=== PATIENT | female | born 2000 | race African-American/Black ===

== ENCOUNTER 2019-10-29 16:31 | Emergency (ER) | payer BC, MEDICAID, SELFPAY ==
--- NOTE | ~2019-10-29 | XR_ITS ---
XR abdomen/kub 1V 10/29/2019 18:05 INDICATION: Left flank pain for 2 months TECHNIQUE: KUB COMPARISON: None FINDINGS: Bowel gas pattern is normal. There is a large amount of debris in the stomach. There is no evidence of free air, mass, organomegaly, ascites or obstruction. No abnormal calculi are seen. The bones appear intact. There is a small right pelvic phlebolith. IMPRESSION: 1: No acute abdominal abnormality identified. Reviewed, dictated and finalized at location A.
[2019-10-29 16:51] VITALS: BP 118/64; PULSE 96; RESP 18; TEMP 37.7; O2SAT 99
--- NOTE | 2019-10-29 17:17 | ED.GENADULT ---
HPI - General Adult General Chief complaint: Unspecified Stated complaint: headaches/stomach pain/vomiting/weakness Time Seen by Provider: 10/29/19 17:17 Source: patient Mode of arrival: ambulatory Limitations: no limitations History of Present Illness HPI narrative: 19-year-old female patient presents to the [facility] with multiple symptoms. Patient states she has had abdominal pain for about 2 months now. Patient did give to a baby about 6 months ago. Patient states she also recently had an Implanon implanted about 1 month ago. Patient states that she has had abdominal pain that is been coming and going. Denies any diarrhea but states that she did start having vomiting about a week ago. Patient states she is also been feeling very hot inside . But denies any fevers, body aches or chills. Denies any sore throat, runny nose, stuffy nose or coughing. Denies any chest pain or shortness of breath. Patient complains of some aching joints at times. Denies breast-feeding at this time. Patient does not have a primary doctor has followed up with her OB since giving . Patient denies any pain with urination. Patient states that she has been spotting ever since getting the Implanon but has not had a full. Since giving . Related Data Home Medications Medication Instructions Recorded Confirmed Nexplanon 10/29/19 Allergies Allergy/AdvReac Type Severity Reaction Status Date / Time No Known Allergies Allergy Unknown Unverified 09/25/17 19:16 Review of Systems Review of Systems: Narrative: CONSTITUTIONAL: Denies fever, chills, or sweats. EYES: Denies visual changes, redness, or discharge. ENT: Denies rhinorrhea, congestion, sore throat, or otalgia. CARDIOVASCULAR: Denies chest pain, palpitations, or edema. RESPIRATORY: Denies cough or dyspnea. GASTROINTESTINAL: Positive abdominal pain, nausea, vomiting, denies diarrhea. GENITOURINARY: Denies dysuria or hematuria. SKIN: Denies rash or itching. MUSCULOSKELETAL: Denies back pain, positive joint pain, and myalgia. NEUROLOGIC: Positive headache, denies numbness, or weakness. PSYCHIATRIC: Denies anxiety or depression. PMFSH Comments At the time of my signature I agree with nursing past medical history, surgical, social, and family history. There is no relevant family history pertinent to the presenting complaint. Exam Narrative: Exam Narrative: GENERAL: Well-appearing, well-nourished, and in no acute distress. HEAD: Normocephalic, atraumatic. EYES: PERRLA and EOMI. ENT: Nares with erythema and edema noted bilaterally, no rhinorrhea or epistaxis. Mucous membranes moist. Posterior pharynx with no erythema, tonsillectomy, exudates or lesions present. Bilateral TMs are clear with no erythema or foreign bodies in the canal. NECK: Supple. No lymphadenopathy CHEST: Clear to auscultation. No respiratory distress. Patient able talk in clear complete sentences. HEART: Regular rate and rhythm. No murmur heard. Normal peripheral pulses. ABDOMEN: Soft, flat, nondistended. No guarding, rebound tenderness, or rigid. No pulsatilla masses. Hyperactive bowel sounds present in all four quadrants. No organomegaly. Negative Grimaldo?s sign. No periumbicial tenderness. No Supra public tenderness or distension. Good femoral pulses bilaterally. No hernia noted. No scars or surface trauma. EXTREMITIES: Normal range of motion. No edema. SKIN: Warm, dry, no rash. NEURO: No focal deficits. Alert and oriented x3. Course Reevaluation(s) Reevaluation #1: Reevaluated patient after her urine dip was completed. Her test is negative at this time. When I went in to reevaluate patient she does not have any CVA tenderness on percussion however she states that most of her abdominal pain is on the left flank area. Discussed with patient since she is having the abdominal pain that is been going on for 2 months as well as recent nausea and vomiting and there is some blood in her urine I like
--- NOTE | 2019-10-29 17:28 | PC.NURSE ---
in br to obtain ua spec.
== END 2019-10-29 18:38 | disposition home or self-care (01) ==
PROVIDERS: Emergency Provider Nurse Practitioner Family
DX: R10.12 Left upper quadrant pain (principal); R11.2 Nausea with vomiting, unspecified
CPT/HCPCS: 74018; 81003; 81025; 87086; 87088; 99213; G0463

== ENCOUNTER 2020-09-29 11:04 | Emergency (ER) | payer OTHER, SELFPAY ==
--- NOTE | ~2020-09-29 | US_ITS ---
EXAMINATION: US OB follow up DATE: 09/29/2020 14:11 INDICATION: Left lower quadrant pain during second trimester TECHNIQUE: Real-time ultrasound of the pelvis was performed. The interpreting radiologist was not pre sent for the study. COMPARISON: None. FINDINGS: There is a single living fetus in transverse lie. The placenta is anterior and 4 cm from th e internal cervical os. cardiac activity and movement are noted. heart rate is 144 beats per minute (bpm). The amniotic fluid index is subjectively normal. Cysts are noted in the other resendiz normal left ovary. The following biometric data were obtained: Biparietal diameter (BPD): 3.1 cm; head circumference (HC): 12.1 cm; abdominal circumference (AC): 10 .0 cm; femur length (FL): 2.0 cm. These measurements are concordant. Estimated weight is 145 g +/- 21 g, which correlates with the 77th percentile when 03/19/2021 is used as estimated date of delivery. As single measurements, these parameters are each equal to the following estimated gestational ages w ith ranges of +/- 2 standard deviations: BPD: 15 weeks 6 days +/- 1 weeks 1 days. HC: 16 weeks 1 days +/- 1 weeks 1 days. AC: 16 weeks 0 days +/- 1 weeks 5 days. FL: 16 weeks 1 days +/- 1 weeks 3 days. estimated gestational age based solely on measurements from this exam is 16 weeks 0 days +/- 1 weeks 1 days. IMPRESSION: 1. Single living fetus in transverse lie. 2. No sonographic correlate for the patient's symptoms. 3. Estimated weight is 145 g +/- 21 g, which correlates with the 77th percentile when 03/19/2021 is used as estimated date of delivery. Reviewed, dictated and finalized at location A. SPECTROMETRY SPECIALIST IMPRESSION: 1. Single living fetus in transverse lie. 2. No sonographic correlate for the patient's symptoms. 3. Estimated weight is 145 g +/- 21 g, which correlates with the 77th per centile when 03/19/2021 is used as estimated date of delivery.
[2020-09-29 11:12] VITALS: BP 118/38; PULSE 85; RESP 16; TEMP 35.9; O2SAT 100
[2020-09-29 11:33] LABS: Basophils Percent Auto 0.2 % (0.2-1.2); Eosinophils Absolute Auto 0.2 K/mm3 (0-0.3); Eosinophils Percent Auto 2.2 % (0-4.4); Hematocrit 35.1 % (37.0-47.0); Hemoglobin 11.6 g/dL (12.0-15.0); Immature Granulocyte Absolute 0.02 K/mm3 (0.00-0.031); Immature Granulocyte Percent A 0.2 % (0-0.5); Lymphocytes Absolute Auto 1.43 K/mm3 (0.9-3.2); Lymphocytes Percent Auto 14.8 % (18.3-44.2); Mean Corpuscular Hemoglobin 23.7 pg (26-34); Mean Corpuscular Volume 71.6 fl (80-100); Mean Platelet Volume 10.1 fl (7.4-10.4); Monocytes Absolute Auto 0.3 K/mm3 (0.1-0.6); Monocytes Percent Auto 2.6 % (2.6-8.5); Neutrophils Absolute Auto 7.8 K/mm3 (1.3-6.7); Platelet Count Result 365 k/mm3 (150-375); White Blood Count 9.7 K/mm3 (4.5-10.0)
[2020-09-29 12:50] VITALS: BP 124/76; PULSE 84; RESP 16; TEMP 36.3; O2SAT 98
--- NOTE | 2020-09-29 15:17 | ED.GENADULT ---
HPI - General Adult General Chief complaint: Vaginal Bleeding Stated complaint: 16 weeks /bleeding Time Seen by Provider: 09/29/20 13:01 Source: patient Mode of arrival: ambulatory Limitations: no limitations History of Present Illness HPI narrative: Patient is a 20-year-old female who presents to emergency department for evaluation of vaginal bleeding and cramping that began today while at work presents noting mild cramping with [employer] vaginal bleeding has seen her yeast pusher on Saturday and everything of been fine at that time had ultrasound that was normal per patient. Patient is patient had an ultrasound on Saturday as noted. Patient on arrival no distress denies any injury trauma or recent illness Related Data Home Medications Medication Instructions Recorded Confirmed ferrous sulfate mg 09/29/20 promethazine 09/29/20 pyridoxine (vitamin B6) [Vitamin 09/29/20 09/29/20 B-6] Allergies Allergy/AdvReac Type Severity Reaction Status Date / Time No Known Allergies Allergy Unknown Verified 09/29/20 12:48 Review of Systems Review of Systems: All systems reviewed & are unremarkable except as noted in HPI and below PMFSH Social History Social History (Updated 09/29/20 @ 15:19 by William Cristobal PA-C) Smoking status: Never smoker Gender identity (if verbalized by the patient): Female Exam Narrative: Exam Narrative: GENERAL: Well-appearing, well-nourished, and in no acute distress. HEAD: Normocephalic, atraumatic. EYES: PERRLA and EOMI. ENT: Nares clear, no rhinorrhea or epistaxis. Mucous membranes moist. CHEST: Clear to auscultation. No respiratory distress. No wheezes rales or rhonchi HEART: Regular rate and rhythm. No murmur heard. Normal peripheral pulses. ABDOMEN: Soft, nontender, nondistended EXTREMITIES: Normal range of motion. No edema. SKIN: Warm, dry, no rash. NEURO: No focal deficits. Alert and oriented x3. Cranial nerves II through XII grossly intact PSYCH: Normal mood and affect. Course Course Emergency Course: Patient in the room no distress aware of case findings treatment plan and diagnosis agreeing to follow-up with her yeast pusher by phone first thing tomorrow to set up for reevaluation in the next week. Patient has been given bleeding precautions. Patient will be discharged home given that she had a viable on ultrasound today but warrants close follow-up given the cramping and bleeding patient is aware of this and agrees with the plan and is also been given reasons to return and agrees to do so if symptoms worsen Vital Signs Vital signs: Vital Signs Temperature 96.7 F L 09/29/20 11:12 Pulse Rate 85 09/29/20 11:12 Respiratory Rate 16 09/29/20 11:12 Blood Pressure 118/38 L 09/29/20 11:12 Pulse Oximetry 100 09/29/20 11:12 Temperature 97.4 F L 09/29/20 12:50 Pulse Rate 84 09/29/20 12:50 Respiratory Rate 16 09/29/20 12:50 Blood Pressure 124/76 09/29/20 12:50 Pulse Oximetry 98 09/29/20 12:50 Medical Decision Making MDM Narrative Medical decision making narrative: Patient with vaginal bleeding in hemodynamically stable no high risk changes in the blood work will be sent back to her yeast pusher for further evaluation patient agrees with this plan also provided with reasons to return and agrees to do so if symptoms worsen Vital Signs Vital Signs: Vital Signs Temperature 96.7 F L 09/29/20 11:12 Pulse Rate 85 09/29/20 11:12 Respiratory Rate 16 09/29/20 11:12 Blood Pressure 118/38 L 09/29/20 11:12 Pulse Oximetry 100 09/29/20 11:12 Temperature 97.4 F L 09/29/20 12:50 Pulse Rate 84 09/29/20 12:50 Respiratory Rate 16 09/29/20 12:50 Blood Pressure 124/76 09/29/20 12:50 Pulse Oximetry 98 09/29/20 12:50 Lab Data Result diagrams: 09/29/20 11:21 Labs: Lab Results 09/29/20 09/29/20 09/29/20 Range/Units 11:21 11:21 11:21 WBC 9.7 (4.5-10.0) K/mm3 RBC 4
[2020-09-29 16:24] VITALS: BP 138/60; PULSE 84; RESP 16; O2SAT 99
== END 2020-09-29 16:24 | disposition home or self-care (01) ==
PROVIDERS: Emergency Medicine; Emergency Provider Emergency Medicine; PCP Obstetrics & Gynecology
DX: O46.92 Antepartum hemorrhage, unspecified, second trimester (principal); O26.892 Other specified pregnancy related conditions, second trimester; R10.9 Unspecified abdominal pain; Z3A.16 16 weeks gestation of pregnancy
CPT/HCPCS: 36415; 76816; 84702; 85025; 85461; 99284

== ENCOUNTER 2021-02-17 19:51 | Observation (INO) | payer OTHER, SELFPAY ==
[2021-02-17 20:06] VITALS: BP 127/85; PULSE 102
[2021-02-17 20:16] VITALS: BP 122/68; PULSE 97
[2021-02-17 20:31] VITALS: BP 127/70; PULSE 104
[2021-02-17 20:46] VITALS: BP 123/70; PULSE 87
[2021-02-17 21:00] VITALS: BP 121/72; PULSE 93
[2021-02-17 21:12] VITALS: BMI 23.4
--- NOTE | 2021-02-17 21:12 | OBADM ---
This patient, Barry Moon, admitted to the OB room Labor/Delivery/Recovery 106 for observation. Patient/family oriented to hospital policies and general routines including ID bracelet, bed and alarms, visiting hours, pain management, procedures, bathroom and other care routines, personal items, smoking policy, room service/diet, and visiting hours. Patient/Family are encouraged to report perceived risks to care and to ask questions if they do not understand what they are told or what they should do.
--- NOTE | 2021-02-18 11:11 | PM.OBTRLD ---
OB - Triage/Final Diagnosis Visit Information Date of evaluation: 02/17/21 Reason for evaluation: threatened labor and other (r/o SROM) Comments/Additional reasons for admission: I have assessed the risk for this patient, Barry Moon, and determined that she would benefit from observation care. Evaluation Vital signs: Vital Signs - 24 hr 02/17/21 20:06 02/17/21 20:16 02/17/21 20:31 Pulse Rate 102 H 97 104 H Blood Pressure 127/85 122/68 127/70 02/17/21 20:46 02/17/21 21:00 Pulse Rate 87 93 Blood Pressure 123/70 121/72
== END 2021-02-17 21:35 | disposition home or self-care (01) ==
PROVIDERS: Admitting Provider Student in an Organized Health Care Education/Training Program; Visit Provider Student in an Organized Health Care Education/Training Program
DX: O47.03 False labor before 37 completed weeks of gestation, third trimester (principal); Z3A.49 Greater than 42 weeks gestation of pregnancy; Z3A.35 35 weeks gestation of pregnancy
CPT/HCPCS: G0378; G0379

== ENCOUNTER 2021-02-18 12:53 | Observation (INO) | payer OTHER, SELFPAY ==
--- NOTE | ~2021-02-18 | US_ITS ---
EXAMINATION: US OB limited w BPP DATE: 02/18/2021 13:57 INDICATION: Oligohydramnios during third trimester TECHNIQUE: Real-time pelvic ultrasound was performed. The interpreting radiologist was not present fo r the study. COMPARISON: 09/29/2020 FINDINGS: There is a single living fetus in vertex presentation. The placenta is anterior. heart rate is 144 beats per minute (bpm). The amniotic fluid index is 7.0 cm which is low (normal range: 7.9 cm to 24.9 cm). Biophysical profile performed by the technologist: breathing (30 sec sustained breathing in 30 minutes): 2 out of 2 movement (3 gross body movements in 30 minutes): 2 out of 2 tone (one episode of exquajd-xwnucepvz-tbmdkcm limb movement): 2 out of 2 Amniotic fluid pocket (2 cm): 2 out of 2 Total score: 8 out of 8 IMPRESSION: 1. Single living fetus in vertex presentation. 2. Biophysical profile 8 out of 8. 3. Oligohydramnios. Reviewed, dictated and finalized at location A.
[2021-02-18 13:05] VITALS: BMI 23.8
--- NOTE | 2021-02-18 13:05 | PC.NURSE ---
Pt arrived to department with c/o contractions, vomiting and diarrhea. States she has been drinking water but hasn't been able to keep it down. States she has been receiving care with located within [facility]. Stated she was in to the doctors office two days ago and they did a test to see if her water was leaking, states it was yellow paper that if she was leaking would turn blue, they also looked at it under a microscope, and checked her fluid level. They said her fluid level was 8-13 and that the paper turned blue, also the doctor said she had a high leak, she stated she went to the hospital [place] and wasn't dilated enough to stay even though they told her she was leaking. She was in [facility] last night for evaluation of leaking and contractions. ROM + was negative at that time.
[2021-02-18 13:25] VITALS: BP 108/73; PULSE 92
--- NOTE | 2021-02-18 14:00 | PM.OBTRLD ---
OB - Triage/Final Diagnosis Visit Information Date of evaluation: 02/18/21 Reason for evaluation: threatened labor and other (r/o SROM) Comments/Additional reasons for admission: I have assessed the risk for this patient, Barry Moon, and determined that she would benefit from observation care. Evaluation Vital signs: Vital Signs - 24 hr 02/18/21 13:25 Pulse Rate 92 Blood Pressure 108/73
[2021-02-18] MEDS: ONDANSETRON HCL ODT 4 MG TABLET PO (14:19)
== END 2021-02-18 14:35 | disposition home or self-care (01) ==
PROVIDERS: Admitting Provider Student in an Organized Health Care Education/Training Program; Visit Provider Student in an Organized Health Care Education/Training Program
DX: O47.9 False labor, unspecified (principal); O41.03X0 Oligohydramnios, third trimester, not applicable or unspecified; Z3A.00 Weeks of gestation of pregnancy not specified
CPT/HCPCS: 76815; 76819; 84112; A9270; G0378; G0379

== ENCOUNTER 2021-05-29 14:55 | Emergency (ER) | payer OTHER, SELFPAY ==
[2021-05-29 15:21] VITALS: BP 111/72; PULSE 87; RESP 18; TEMP 36.6; O2SAT 99
[2021-05-29 15:47] LABS: Basophils Percent Auto 0.3 % (0.2-1.2); Eosinophils Absolute Auto 0.3 K/mm3 (0-0.3); Eosinophils Percent Auto 3.7 % (0-4.4); Hematocrit 35.8 % (37.0-47.0); Hemoglobin 11.5 g/dL (12.0-15.0); Immature Granulocyte Absolute 0.02 K/mm3 (0.00-0.031); Immature Granulocyte Percent A 0.3 % (0-0.5); Lymphocytes Absolute Auto 2.36 K/mm3 (0.9-3.2); Lymphocytes Percent Auto 30.3 % (18.3-44.2); Mean Corpuscular HGB Conc 32.1 g/dl (32-36); Mean Corpuscular Hemoglobin 24.2 pg (26-34); Mean Corpuscular Volume 75.2 fl (80-100); Mean Platelet Volume 9.6 fl (7.4-10.4); Monocytes Absolute Auto 0.5 K/mm3 (0.1-0.6); Monocytes Percent Auto 5.9 % (2.6-8.5); Neutrophils Absolute Auto 4.7 K/mm3 (1.3-6.7); Neutrophils Percent Auto 59.5 % (45.5-73.1); Platelet Count Result 376 k/mm3 (150-375); Red Blood Count 4.76 M/mm3 (4.2-5.4); Red Cell Distribution Width 19.3 % (11.5-14.5); White Blood Count 7.8 K/mm3 (4.5-10.0)
[2021-05-29 16:12] LABS: Beta HCG Quantitative < 2.39 mIU/ML
[2021-05-29 16:47] VITALS: BP 107/66; PULSE 67; RESP 18; TEMP 36.3; O2SAT 99
== END 2021-05-30 04:11 | disposition left against medical advice (07) ==
PROVIDERS: Emergency Provider Emergency Medicine
DX: N93.9 Abnormal uterine and vaginal bleeding, unspecified (principal); Z53.21 Procedure and treatment not carried out due to patient leaving prior to being seen by health care provider
CPT/HCPCS: 36415; 84702; 85025; 85461; 99199

== ENCOUNTER 2021-08-03 19:33 | Emergency (ER) | payer OTHER, SELFPAY ==
[2021-08-03 19:35] VITALS: BP 120/78; PULSE 83; RESP 20; TEMP 36.7; O2SAT 100
--- NOTE | 2021-08-03 19:55 | ED.GENADULT ---
HPI - General Adult General Chief complaint: Headache Stated complaint: Headache Source: patient and family Mode of arrival: ambulatory Limitations: no limitations History of Present Illness HPI narrative: Patient is a 21-year-old -[place] female who presents to the [facility] via POV for evaluation of an intermittent headache that has been present for approximately 3 weeks. She is accompanied by her mother. Additionally, she reports a sore throat and bilateral ear pain that is intermittent as well. Excedrin and sleeping provides some relief. Nothing worsens symptoms. She also reports nausea and vomiting that has been present for 1 week. She denies taking OTC meds for nausea and vomiting. Nothing improves or worsens GI symptoms. She is requesting a test today. LMP 07/11/21 Related Data Home Medications Medication Instructions Recorded Confirmed ferrous sulfate mg 09/29/20 norgestimate-ethinyl estradiol tablet 08/03/21 [Estarylla] Allergies Allergy/AdvReac Type Severity Reaction Status Date / Time No Known Allergies Allergy Unknown Verified 08/03/21 19:38 Review of Systems Review of Systems: Denies past abdominal medical history. Pertinent negatives fever, chills, sweats, malaise, poor p.o. intake, change in appetite, recent weight loss, lymphadenopathy, severe persistent headache, drooling, difficulty swallowing, changes, ear drainage, hearing difficulty, tinnitus, vertigo, dizziness, LOC, urinary sxs, back/flank pain, extremity paresthesias, blood in stool, nausea, vomiting, diarrhea, constipation, belching, bloating, dry mouth, heartburn, jaundice, vomiting blood, and testicular pain. PMFSH Social History Social History Smoking status: Never smoker Gender identity (if verbalized by the patient): Female Comments Spinal stenosis, radiculopathy/sciatica,cauda equina syndrome, sacroiliac pathology, fracture, strain Exam Narrative: GENERAL: Well-appearing, well-nourished, and in no acute distress. HEAD: Normocephalic, atraumatic. No sinus tenderness or facial swelling appreciated. EYES: PERRLA and EOMI. No evidence of erythema, swelling, or drainage. ENT: Mucous membranes moist and pink. Uvula is midline without erythema and swelling. No evidence of petechial rash, cobblestoning, lesions, ulcers, erythema, swelling, exudates, peritonsillar abscess, tenting, or drooling. Breath odor and voice normal. NECK: Supple. No Lymphadenopathy or nuchal rigidity appreciated. CHEST: Bilateral lung jimenez are clear to auscultation. No respiratory distress. No evidence of cough or pleuritic cp upon examination. HEART: Regular rate and rhythm. No murmur, gallop, or rub heard. ABDOMEN: Soft, nontender, nondistended, normal active bowel sounds in all quadrants. No guarding. No rebound tenderness. No pulsatile or palpable abdominal mass(es). No CVAT EXTREMITIES: Normal range of motion. No edema. SKIN: Warm, dry, no rash. Excellent skin turgor. NEURO: No focal deficits. Alert and oriented x3. SPECIAL OBSERVATIONS: Complaints out of proportion to exam findings. Course Vital Signs Vital signs: Vital Signs Temperature 98.0 F 08/03/21 19:35 Pulse Rate 83 08/03/21 19:35 Respiratory Rate 20 08/03/21 19:35 Blood Pressure 120/78 08/03/21 19:35 Pulse Oximetry 100 08/03/21 19:35 Temperature 98.0 F 08/03/21 19:35 Pulse Rate 83 08/03/21 19:35 Respiratory Rate 20 08/03/21 19:35 Blood Pressure 120/78 08/03/21 19:35 Pulse Oximetry 100 08/03/21 19:35 Reviewed Medical Decision Making Differential Diagnosis Differential Diagnosis: Allergic rhinitis, ABRS, acute viral sinusitis, strep pharyngitis, nasopharyngitis, bronchitis, pneumonia, AOM, otitis externa, viral URI, influenza, covid-19, gastroenteritis, IBS, Crohn's disease, ulcerative colitis Medical Records Medical records reviewed: Yes I reviewed the external patient's me
== END 2021-08-03 20:10 | disposition home or self-care (01) ==
PROVIDERS: Emergency Provider Nurse Practitioner Family
DX: J30.2 Other seasonal allergic rhinitis (principal); R11.2 Nausea with vomiting, unspecified
CPT/HCPCS: 99213; G0463

== ENCOUNTER 2022-02-01 19:46 | Emergency (ER) | payer OTHER, SELFPAY ==
--- NOTE | 2022-02-01 19:51 | ED.SKABFB ---
HPI - Skin/Abscess/Foreign Bdy General Chief complaint: Skin/Abscess/Foreign Body Stated complaint: Insect bites Time Seen by Provider: 02/01/22 19:51 Source: patient Mode of arrival: ambulatory Limitations: no limitations History of Present Illness HPI narrative: 21 yo F presents with c/o insect bites to both arms, chest, back. 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 C/o itching and burning. states coworkers have similar bites. all systems reviewed and negative except as noted above. Related Data Home Medications Medication Instructions Recorded Confirmed ferrous sulfate 325 mg (65 mg mg 09/29/20 iron) tablet norgestimate 0.25 mg-ethinyl tablet 08/03/21 estradiol 35 mcg tablet (Estarylla) Allergies Allergy/AdvReac Type Severity Reaction Status Date / Time No Known Allergies Allergy Unknown Verified 08/03/21 19:38 Review of Systems Review of Systems: CONSTITUTIONAL: Denies fever, chills, or sweats. EYES: Denies visual changes, redness, or discharge. ENT: Denies rhinorrhea, congestion, sore throat, or otalgia. CARDIOVASCULAR: Denies chest pain, palpitations, or edema. RESPIRATORY: Denies cough or dyspnea. GASTROINTESTINAL: Denies abdominal pain, nausea, vomiting, or diarrhea. GENITOURINARY: Denies dysuria or hematuria. SKIN: Reports itching, burning insect bites. MUSCULOSKELETAL: Denies back pain, joint pain, or myalgia. NEUROLOGIC: Denies headache, numbness, or weakness. PSYCHIATRIC: Denies anxiety or depression. All other systems reviewed are negative, except as documented in HPI. PMFSH Social History Social History Smoking status: Never smoker Gender identity (if verbalized by the patient): Female Comments At time of signature, agree with nursing past medical, surgical, social and family history. There is no relevant family history pertinent to the presenting complaint. Exam Narrative: GENERAL: This is a well-nourished, well-developed patient, in no apparent distress. HEAD: normocephalic, atraumatic. EYES: PERRL. Sclera clear/white. Vision is grossly intact. EARS: External ears normal NOSE: External nose normal NECK: Neck supple, non-tender without lymphadenopathy, masses or thyromegaly. CARDIOVASCULAR: Regular rate and rhythm without murmurs, gallops, or rubs. RESPIRATORY: Clear to auscultation. Breath sounds equal bilaterally. No wheezes, rales, or rhonchi. SKIN: warm, Dry, intact with no suspicious lesions or rash, good texture and turgor. Reports erythematous scabbed papules to both anterior aspects of arms, middle of back, chest. No drainage. NEURO: awake, alert, and oriented to person, place and time. There were no obvious focal neurologic abnormalities. EXTREMITIES: No joint tenderness, effusion, or edema noted. No calf tenderness. Negative Homans sign bilaterally. Course Course Level of Care: Express Care Visit Vital Signs Vital signs: Reviewed MDM - Skin/Abscess/Foreign Bdy MDM Narrative Medical decision making narrative: Patient is aware of diagnosis, understands and agrees to treatment plan. Anticipatory guidance given. Patient agrees to follow-up as directed and is aware of reasons to seek care at the emergency department. Portions of this record may have been created with voice recognition software Discharge Plan Discharge Clinical Impression: Insect bite Patient Disposition: Home, Self-Care Condition: Stable Instructions: Insect Bite or Sting (ED) Additional Instructions: Apply steroid cream as prescribed. Take benadryl as needed for itching. See your doctor if symptoms not improving. Prescriptions: New triamcinolone acetonide 0.1 % cream 1 applic topical BID Qty: 15 0RF No Action norgestimate-ethinyl estradiol [Estarylla] 0.25-35 mg-mcg tablet ferrous sulfate 325 mg (65 mg iron) tablet Follow-up/Referrals: PHYSICIAN,SUPERVISOR CEREAL [Teresa
[2022-02-01 19:54] VITALS: BP 147/103; PULSE 101; RESP 18; TEMP 37.3; O2SAT 100
== END 2022-02-01 20:06 | disposition home or self-care (01) ==
PROVIDERS: Emergency Provider Nurse Practitioner Family
DX: S40.862A Insect bite (nonvenomous) of left upper arm, initial encounter (principal); S40.861A Insect bite (nonvenomous) of right upper arm, initial encounter; S20.469A Insect bite (nonvenomous) of unspecified back wall of thorax, initial encounter; S20.369A Insect bite (nonvenomous) of unspecified front wall of thorax, initial encounter; W57.XXXA Bitten or stung by nonvenomous insect and other nonvenomous arthropods, initial encounter
CPT/HCPCS: 99213; G0463

== ENCOUNTER 2022-11-26 07:50 | Emergency (ER) | payer BC, OTHER, SELFPAY ==
--- NOTE | ~2022-11-26 | US_ITS ---
Pelvic ultrasound. Clinical History: Pelvic pain Technique: Realtime transabdominal and transvaginal scanning of the pelvis was performed. Color flow Doppler and Doppler spectral analysis were performed. Findings: The uterus is anteverted. The endometrial stripe has a thickness of 5 mm. No focal mass is identified. The right ovary measures 1.6 x 3.0 x 2.0 cm. Probable small right ovarian or paraovarian cysts are pr esent. The left ovary measures 2.4 x 3.8 x 2.5 cm. No significant left ovarian or adnexal mass is seen. Vascular flow present in both ovaries on Doppler spectral analysis. There is trace free fluid in the cul de sac. Impression: Probable small right paraovarian versus ovarian cysts. Small amount of free fluid. Reviewed, dictated and finalized at [facility]. Impression: Probable small right paraovarian versus ovarian cysts. Small amount of free fluid.
--- NOTE | ~2022-11-26 | CT_ITS ---
EXAMINATION: CT abdomen pelvis w con DATE: 11/26/2022 11:00 INDICATION: Abdomen pain TECHNIQUE: Computed tomography (CT) of the abdomen and pelvis was performed with 100 cc Omnipaque 350 intravenous contrast. The dose-length product was 277.37 mGy-cm. Automated exposure control and iter ative reconstruction technique were employed. COMPARISON: None. FINDINGS: Heart size normal. No significant pleural or pericardial effusion. No significant vascular abnormality. No lymphadenopathy. Small amount of free fluid in the pelvis. Nonobstructive bowel patte rn. No significant vascular abnormality. The liver, spleen, pancreas, adrenal glands and kidneys are unremarkable. No free air or free fluid. Small fat-containing umbilical hernia. Small fat-containing umbilical hernia. The appendix is not pos itively visualized. There is no pericecal inflammatory change to suggest appendicitis. There is sc oliosis. IMPRESSION: 1. No acute abdominal abnormality. 2: Small amount of free fluid in the pelvis, likely physiologic. Reviewed, dictated and finalized at location [facility].
[2022-11-26 07:56] VITALS: BP 110/58; PULSE 79; RESP 18; TEMP 36.7; O2SAT 100
--- NOTE | 2022-11-26 08:52 | ED.ABDPAIN ---
HPI - Abdominal Pain General Chief Complaint: Abdominal Pain Stated Complaint: Ovary pain Time Seen by Provider: 11/26/22 08:25 Source: RN notes reviewed History of Present Illness HPI narrative: Patient presents emerged department from home for lower abdominal pain. Patient states she has had pain in the bilateral lower abdomen for the past 1 week. Patient states the pain is described as sharp and stabbing in nature and does not radiate. Nothing makes the pain better or worse. Patient states she has been taking Tylenol every morning for the pain with mild relief. She does note some associated nausea vomiting. She denies any fevers or chills chest pain shortness of breath diarrhea or any other symptoms. Related Data Home Medications Medication Instructions Recorded Confirmed vits [id number] fum 1 tablet DIRECTED 02/01/22 02/01/22 28 mg iron-folic acid 800 mcg tablet (Classic ) Allergies Allergy/AdvReac Type Severity Reaction Status Date / Time No Known Allergies Allergy Unknown Verified 08/03/21 19:38 Review of Systems Review of Systems: Gen.: Denies fevers or chills ENT: Denies congestion Respiratory: Denies shortness of breath or cough CV: Denies chest pain or palpitations GI: See HPI denies burning, urgency, frequency or hematuria Musculoskeletal: Denies back pain or muscle pain Neuro: Denies numbness, tingling, weakness or focal weakness Skin: Denies rash Except as documented, all other systems reviewed and negative [facility] Past Medical History Medical History (Updated 11/26/22 @ 11:21 by Nathaniel Pineda DO) Patient denies medical problems Social History Social History Smoking status: Never smoker Gender identity (if verbalized by the patient): Female Exam Narrative: APPEARANCE: No acute distress, nontoxic, resting in bed HEENT: Normocephalic, atraumatic, OMM RESPIRATORY: No respiratory distress, clear to auscultation bilaterally with no rhonchi wheezing or rales CARDIOVASCULAR: RRR s murmur ABDOMINAL: Soft nondistended is going tender to palpation in the right lower quadrant in the left lower quadrant no tenderness in the right upper quadrant in the left upper quadrant no rebound or guarding MUSCULOSKELETAl: Moves all extremities. No clubbing, cyanosis or edema. NEURO: Awake and alert. Following commands, speech normal, no focal deficits SKIN:: Warm, dry. Normal Color PSYCHIATRIC: Normal affect/mood Course Course Emergency Course: Patient states that they are feeling much better at this time. States abdominal pain has resolved. Repeat abdominal exam shows the patient's abdomen to be soft and nontender. Discussed with patient results of workup and diagnosis. Discussed need for follow-up with primary care physician, reasons to return to the emergency department in proper use of medication. Patient understands and agrees to current treatment plan Vital Signs Vital signs: Vital Signs Temperature 98.0 F 11/26/22 07:56 Pulse Rate 79 11/26/22 07:56 Respiratory Rate 18 11/26/22 07:56 Blood Pressure 110/58 L 11/26/22 07:56 Pulse Oximetry 100 11/26/22 07:56 Oxygen Delivery Room Air 11/26/22 07:56 Temperature 98.0 F 11/26/22 07:56 Pulse Rate 86 11/26/22 11:20 Respiratory Rate 16 11/26/22 11:20 Blood Pressure 144/84 H 11/26/22 11:20 Pulse Oximetry 98 11/26/22 11:20 Oxygen Delivery Room Air 11/26/22 07:56 MDM - Abdominal Pain MDM Narrative Medical decision making narrative: Patient's abdomen is soft without significant pain or signs of surgical abdomen on serial exams. Lab and x-ray evaluations are reviewed and patient is felt to be a reasonable candidate for outpatient management. Patient was instructed as to limitations of x-ray and laboratory evaluation and encouraged to return to ED or primary physician for repeat exam in 12 hours if continued or worsening pain pa
[2022-11-26 09:50] LABS: Basophils Percent Auto 0.3 % (0.2-1.2); Eosinophils Absolute Auto 0.5 K/mm3 (0-0.3); Eosinophils Percent Auto 7.3 % (0-4.4); Hematocrit 41.2 % (37.0-47.0); Hemoglobin 13.5 g/dL (12.0-15.0); Immature Granulocyte Absolute 0.02 K/mm3 (0.00-0.031); Immature Granulocyte Percent A 0.3 % (0-0.5); Lymphocytes Absolute Auto 2.03 K/mm3 (0.9-3.2); Lymphocytes Percent Auto 27.5 % (18.3-44.2); Mean Corpuscular HGB Conc 32.8 g/dl (32-36); Mean Corpuscular Hemoglobin 26.2 pg (26-34); Mean Platelet Volume 10.2 fl (7.4-10.4); Monocytes Absolute Auto 0.5 K/mm3 (0.1-0.6); Monocytes Percent Auto 6.1 % (2.6-8.5); Neutrophils Absolute Auto 4.3 K/mm3 (1.3-6.7); Neutrophils Percent Auto 58.5 % (45.5-73.1); Platelet Count Result 367 k/mm3 (150-375); Red Blood Count 5.15 M/mm3 (4.2-5.4); Red Cell Distribution Width 14.3 % (11.5-14.5); White Blood Count 7.4 K/mm3 (4.5-10.0)
[2022-11-26 09:51] LABS: Appearance Urine Clear (Clear); Bacteria Urine Rare /hpf; Bilirubin Urine Negative (Negative); Blood Urine Negative (Negative); Color Urine Yellow (Yellow); Glucose Urine UA Negative (Negative); Ketones Urine Negative (Negative); Leukocyte Esterase Ur Trace LEU/UL (Negative); Nitrate Urine Negative (Negative); Non Pathogenic Casts 0-2; Protein Urine Negative (Negative); RBC Urine 0-2 /hpf (0-2); Specific Grav Ur 1.015 (1.001-1.035); Squamous Epithelial Cell Urine Few /hpf (Few); Urobilinogen Urine 0.2 mg/dL (<2.0)
--- NOTE | 2022-11-26 09:53 | PC.NURSE ---
Pt taken to ultrasound by wheelchair
[2022-11-26 09:56] LABS: Alanine Aminotransferase 13 U/L (6-35); Albumin Level 4.5 g/dL (3.5-5.1); Alkaline Phosphatase 120 U/L (38-126); Anion Gap 1 mmol/L (8-16); Aspartate Amino Transferase 24 U/L (14-36); Bilirubin,Total 0.4 mg/dL (0.2-1.3); Blood Urea Nitrogen 4 mg/dL (7-17); Calcium 9.2 mg/dL (8.4-10.2); Carbon Dioxide 33 mmol/L (22-30); Chloride 101 mmol/L (98-107); Estimated CRCL calculation 121 ml/min; Estimated Glomerular Filt Rate > 60; Glucose 95 mg/dL (65-110); Lipase 58 U/L (23-300); Potassium 4.1 mmol/L (3.4-5.0); Sodium 135 mmol/L (137-145)
[2022-11-26 10:09] LABS: Add Urine Microscopic? YES
[2022-11-26] MEDS: KETOROLAC 30 MG/ML VIAL (*BKC) IV PUSH (10:30)
[2022-11-26 11:20] VITALS: BP 144/84; PULSE 86; RESP 16; O2SAT 98
== END 2022-11-26 11:25 | disposition home or self-care (01) ==
PROVIDERS: Emergency Provider Emergency Medicine
DX: N83.201 Unspecified ovarian cyst, right side (principal)
CPT/HCPCS: 36415; 74177; 76830; 76856; 80053; 81001; 81025; 83690; 85025; 87077; 87086; 87088; 96374; 99284; J1885; Q9967

== ENCOUNTER 2023-05-09 12:52 | Outpatient (CLI) | payer BC, OTHER, SELFPAY ==
[2023-05-09] VITALS (14 sets, daily range): BP systolic 87–125; BP diastolic 54–81; PULSE 89–102; BMI 24.2
--- NOTE | 2023-05-09 13:52 | PC.NURSE ---
Dr. Sargent informed of this walk in pt (has had care at [facility]) at 25 wks with c/o Headache x's 4 days that she describes as a throbbing on the left side of her head which she currently rates as an 8 out of 10. Also has some lightheadedness. Denies visual disturbance, epigastric/RUQ pain. No edema. DTR's 1+ and no clonus. Pt has a hx of 's at 36 and 37 wks gestation. This baby is SGA. informed of reactive NST with 10 beat accels, no contractions, and BP's. Order received for PO Tylenol and caffeine.
[2023-05-09] MEDS: ACETAMINOPHEN 500 MG TABLET 1000 MG PO (14:13)
[2023-05-09] MEDS: CAFFEINE 200 MG TABLET PO (14:16)
[2023-05-09 14:18] LABS: Appearance Urine Cloudy (Clear); Bacteria Urine 1+ /hpf; Bilirubin Urine Negative (Negative); Blood Urine Negative (Negative); Color Urine Yellow (Yellow); Glucose Urine UA Negative (Negative); Ketones Urine Trace mg/dL (Negative); Leukocyte Esterase Ur 1+ LEU/UL (Negative); Nitrate Urine Negative (Negative); Non Pathogenic Casts 0-2; Protein Urine 1+ mg/dL (Negative); RBC Urine 0-2 /hpf (0-2); Squamous Epithelial Cell Urine Many /hpf (Few); WBC Urine 21-50 /hpf; pH Urine 6.5 (5.0-9.0)
[2023-05-09 14:22] LABS: Add Urine Microscopic? YES
--- NOTE | 2023-05-09 15:41 | PC.NURSE ---
Dr. Sargent informed pt states she had an emesis after taking her first bite of dinner which was about 30 mins after taking the Tylenol and caffeine pills. Not sure if the pills were in her emesis. Pt denies feeling any more alert after taking the caffeine pill. Pt still has some nausea. Headache down to a 5 out of 10. Orders received.
--- NOTE | 2023-05-09 15:41 | PC.NURSE ---
MD also informed of UA results.
[2023-05-09] MEDS: ONDANSETRON HCL ODT 4 MG TABLET PO (15:53)
--- NOTE | 2023-05-09 16:35 | PC.NURSE ---
Pt's headache is down to a 3 out of 10. Nausea has resolved. Applesauce and denice crackers given. Pt agreeable to not taking Oxycodone since headache is less and to make sure she has some food in her stomach before taking.
--- NOTE | 2023-05-09 17:34 | PC.NURSE ---
Dr. Sargent informed nausea resolved after Zofran, headache down to a 1 out of 10 without giving Oxycodone. Pt keeping food down and feels up to going home. Pt has her next scheduled office appointment on Saturday. OK to discharge to home.
== END 2023-05-09 18:14 | disposition home or self-care (01) ==
LOC: ANHOBOP 13:00 → ANHOBPP 13:00
PROVIDERS: Visit Provider Obstetrics & Gynecology
DX: O13.9 Gestational [pregnancy-induced] hypertension without significant proteinuria, unspecified trimester (principal)
CPT/HCPCS: 59025; 81001; 87086; 87088; 99199; A9270